=== PATIENT | male | born 1965 ===

== ENCOUNTER 2020-10-28 09:41 | Observation (INO) ==
[2020-10-28 10:35] LABS: ABS Basophils 0.1 10^3/ul (0-0.2); ABS Eosinophils 0.2 10^3/ul (0-0.6); ABS Lymphocytes 1.8 10^3/ul (1.0-4.8); ABS Monocytes 0.6 10^3/ul (0-0.8); ABS Neutrophils 5.7 10^3/ul (1.5-7.7); Eosinophil % 2.3 %; Hematocrit 50 % (42-52); Hemoglobin 17.1 g/dL (14.0-18.0); Lymphocyte % 21.5 %; Mean Corpuscular HGB Conc 34 g/dL (31-36); Mean Corpuscular Hemoglobin 30 pg (27-31); Mean Corpuscular Volume 87 fL (80-94); Mean Platelet Volume 6.5 fL (7.4-10.4); Nucleated Red Blood Cells % 0.1; Platelet Count 301 10^3/uL (150-450); Red Blood Count 5.79 10^6 /uL (4.18-5.48); Red Cell Distribution Width 13 % (10-15); White Blood Count 8.4 10^3/uL (3.5-10.8)
[2020-10-28 10:56] LABS: ALT 53 U/L (7-52); AST 28 U/L (13-39); Albumin 4.3 g/dL (3.2-5.2); Albumin/Globulin Ratio 1.5 (1-3); Alkaline Phosphatase 69 U/L (34-104); Anion Gap 9 mmol/L (2-11); BUN/Creatinine Ratio 18.1 (8-20); Blood Urea Nitrogen 17 mg/dL (6-24); CO2 Carbon Dioxide 26 mmol/L (22-32); Calcium 9.6 mg/dL (8.6-10.3); Chloride 104 mmol/L (101-111); EGFR African American 100.5 (>60); Globulin 2.9 g/dL (2-4); Glucose 188 mg/dL (70-100); Sodium 139 mmol/L (135-145); Total Protein 7.2 g/dL (6.4-8.9)
[2020-10-28 10:57] LABS: Troponin I 0.01 ng/mL (<0.03)
[2020-10-28 11:10] LABS: Alcohol, S < 10 mg/dL (<10)
[2020-10-28] MEDS ORDERED: Iodixanol (CONTRAST) 320 MG/ML 100 ML SDV IV ONE (11:10)
[2020-10-28] MEDS ORDERED: NS 0.9% 1000 ml BAG 1,000 ML IV ONE (11:50)
[2020-10-28] MEDS ORDERED: Albuterol/Ipratropium NEB.SOL (2.5/0.5 MG) 3 ML NEB.SOLN INH PRN (12:38)
[2020-10-28] MEDS ORDERED: Albuterol/Ipratropium NEB.SOL (2.5/0.5 MG) 3 ML NEB.SOLN INH ONE (12:38)
[2020-10-28] MEDS ORDERED: Dextrose 50% Syringe 50 ml 25 GM/50 ML SYRINGE IV PUSH PRN (12:39)
[2020-10-28 12:45] LABS: Urine Appearance Clear; Urine Bilirubin Negative (Negative); Urine Blood Negative (Negative); Urine Color Yellow; Urine Glucose 3+(>=500 mg/dL) (Negative); Urine Ketones Trace (Negative); Urine Nitrite Negative (Negative); Urine Protein 1+(30 mg/dL) (Negative); Urine Specific Gravity 1.058 (1.010-1.030); Urine Urobilinogen Negative (Negative)
[2020-10-28 12:45] LABS: Cholesterol 151 mg/dL; HDL Cholesterol 29.1 mg/dL; LDL Cholesterol 85 mg/dL; Triglycerides 186 mg/dL
[2020-10-28] MEDS ORDERED: Albuterol HFA INHALER 8 gm MDI INH PRN (12:49)
[2020-10-28 12:51] LABS: Urine Bacteria Absent (Absent); Urine Red Blood Cell Trace(0-2/hpf) (Absent); Urine Squamous Epithelial Cell Present (Absent); Urine White Blood Cell Absent (Absent)
[2020-10-28 12:53] LABS: Urine Benzodiazepine Screen None Detected (None Detect); Urine Cannabinoids Screen Presumptive Positive (None Detect); Urine Opiates Screen None Detected (None Detect)
[2020-10-28] MEDS: NS 0.9% 1000 ml BAG 1,000 ML IV SCH (14:26)
[2020-10-28] MEDS ORDERED: Enoxaparin 40 MG/0.4 ML SYR SUBCUT SCH (17:00)
[2020-10-29] MEDS: NS 0.9% 1000 ml BAG 1,000 ML IV SCH (04:01)
[2020-10-29] MEDS ORDERED: NEBIVOLOL 2.5 MG PO SCH (09:00)
[2020-10-29] MEDS ORDERED: Aspirin EC 81 mg TAB.EC (enteric coated) PO SCH (09:00)
[2020-10-29 11:34] VITALS: BP 145/93
== END 2020-10-29 16:15 | disposition home or self-care (01) ==
LOC: ED 09:41 → MEDTELE 09:41
PROVIDERS: ADMIT Internal Medicine; ATTEND Internal Medicine